=== PATIENT | male | born 1995 | race Caucasian/White ===

== ENCOUNTER 2021-06-24 14:19 | Outpatient (CLI) | payer OTHER ==
--- NOTE | 2021-06-24 16:16 | XRAY Report ---
PROCEDURE: Wrist 3 View RT INDICATIONS: PAIN IN RIGHT WRIST TECHNIQUE: 3 views of the wrist were acquired. COMPARISON: None FINDINGS: Bones: No fractures or dislocations. No suspicious bony lesions. Scaphoid view: Not obtained Soft tissues: No suspicious soft tissue calcifications. IMPRESSION: No visualized acute fracture or dislocation. However, occult injury cannot be excluded. Recommend attila rt interval imaging follow-up in 7-10 days as clinically indicated for additional evaluation. Reviewed by: Ambreen Whitlock MD on 06/24/2021 4:15 PM PDT Approved by: Ambreen Whitlock MD on 06/24/2021 4:15 PM PDT Station ID: [id number]
== END 2021-06-24 23:59 | disposition home or self-care (01) ==
LOC: DI.N 14:19
PROVIDERS: ATTEND Registered Nurse
DX: M25.531 Pain in right wrist (principal)